=== PATIENT | male | born 1990 | race Caucasian/White ===

== ENCOUNTER → 2025-07-22 | Outpatient (CLI) | payer OTHER, SELFPAY ==
--- NOTE | 2025-07-22 11:03 | MRI_ITS ---
PROCEDURE: SPINE CERVICAL (ROUTINE) 07/22/2025 REASON FOR EXAM: CERVICALGIA TECHNIQUE: Procedure Code: MRISPC Modality: MR Procedure: SPINE CERVICAL (ROUTINE) Multiplanar and multisequence images were obtained without IV contrast administration. COMPARISON: None available. FINDINGS: The visualized posterior fossa contents appear within normal limits. Mild reversal of the usual cervical lordosis. The atlantooccipital and atlantoaxial joints appear normally aligned. The cervical vertebral bodies are normal in height. The cervical vertebral bodies are normal in alignment. The cervical bone marrow signal is within normal limits. There is no evidence of cervical spinal cord signal abnormality. C2-C3: No significant spinal canal stenosis or neural foraminal narrowing. C3-C4: No significant spinal canal stenosis or neural foraminal narrowing. C4-C5: No significant spinal canal stenosis or neural foraminal narrowing. C5-C6: No significant spinal canal stenosis or neural foraminal narrowing. C6-C7: No significant spinal canal stenosis or neural foraminal narrowing. C7-T1: No significant spinal canal stenosis or neural foraminal narrowing MRI/Spine Cervical (Routine) IMPRESSION: No high-grade spinal canal or neural foraminal stenosis in the cervical spine. Reading Location: [id number]
== END | disposition home or self-care (01) ==
LOC: MRI 10:57
PROVIDERS: Referring Provider Family Medicine; Visit Provider Family Medicine
DX: M54.2 Cervicalgia (principal)
CPT/HCPCS: 72141